=== PATIENT | female | born 1975 | race African-American/Black ===

== ENCOUNTER 2016-11-19 20:26 | Emergency (ER) | payer SELFPAY ==
--- NOTE | 2016-11-19 20:31 | PDOC ---
Rapid Medical Evaluation Chief Complaint: Pain Time Seen by Provider: 11/19/16 20:30 Medical Evaluation: Allergies Allergy/AdvReac Type Severity Reaction Status Date / Time shellfish derived Allergy Mild Swelling Verified 11/23/14 19:17 No Known Drug Allergies Allergy Verified 11/23/14 19:17 nuts Allergy Mild Swelling Uncoded 11/23/14 19:17 11/19/16 20:3 I have performed a brief in-person evaluation of this patient. Ms. Sheriff is a 40 yo F h/o Anemia who states that approximately 1 week ago, she stubbed her left great toe on something at work. Her pain has not improved, worsens with dorsi and plantar flexion, and with bearing weight Has been taking tylenol for pain which has not helped Has also used Icy Hot but this also did not help LMP: 10/27 Pertinent physical exam findings: Left great toe pain with palpation, no swelling, no bruising, no lacerations I have ordered the following: xray left foot o The patient will proceed to Fast track for further evaluation. 11/19/16 20:32 11/19/16 20:35
[2016-11-19 20:33] VITALS: BP 168/90; PULSE 95; TEMP 97.8; BMI 28.3
[2016-11-19] MEDS ORDERED: IBUPROFEN 600 MG TABLET (FP) PO ONE ×2 (20:34→21:30)
--- NOTE | 2016-11-19 22:01 | PDOC ---
[id number] TOE PAIN Time Seen by Provider: 11/19/16 20:30 History Source: Patient Exam Limitations: No Limitations - History of Present Illness Initial Comments: 11/19/16 21:57 40 yr c/o injuring left great toe on 11/14 at work. pt states a rolling rack hit her toe. no deformity c/o continued pain. Lower Extremity Pain Location: right: 1st toe Past History - Past Medical History Allergies/Adverse Reactions: Allergies Allergy/AdvReac Type Severity Reaction Status Date / Time shellfish derived Allergy Mild Swelling Verified 11/19/16 20:31 No Known Drug Allergies Allergy Verified 11/19/16 20:31 nuts Allergy Mild Swelling Uncoded 11/19/16 20:31 Home Medications: Ambulatory Orders NK [No Known Home Medication] 11/19/16 Anemia: Yes Psychiatric Problems: Yes (depression, anxiety) Suicide Attempt (Hx): No - Surgical History Abdominal Surgery: Yes Cholecystectomy: Yes - Immunization History Td Vaccination: Yes Immunization Up to Date: Yes - Psycho/Social/Smoking Cessation Hx Anxiety: Yes Suicidal Ideation: No Smoking Status: No Smoking History: Never smoked Years of Tobacco Use: 0 Number of Cigarettes Smoked Daily: 0 Cigars Per Day: 0 Hx Alcohol Use: No Drug/Substance Use Hx: No Substance Use Type: None Review of Systems - Review of Systems Able to Perform ROS?: Yes Is the patient limited Telugu proficient: No Constitutional: No: Symptoms Reported HEENTM: No: Symptoms Reported Respiratory: No: Symptoms reported Cardiac (ROS): No: Symptoms Reported ABD/GI: No: Symptoms Reported Musculoskeletal: Yes: Symptoms Reported *Physical Exam - Vital Signs Last Vital Signs Temp Pulse Resp BP Pulse Ox 97.8 F 95 H 18 168/90 100 11/19/16 20:31 11/19/16 20:31 11/19/16 20:31 11/19/16 20:31 11/19/16 20:31 - Physical Exam General Appearance: Yes: Nourished, Appropriately Dressed HEENT: positive: EOMI, TORI Extremity: positive: Normal Capillary Refill, Normal Inspection, Normal Range of Motion, Tender (top of left great toe, FROM no bony tenderness, soft tissue tenderness and with flexion, dorsiflexion) Integumentary: positive: Normal Color, Dry, Warm ED Treatment Course - ADDITIONAL ORDERS Additional order review: Laboratory Results 11/19/16 20:36 Urine HCG, Qual Negative - Medications Given in the ED: ED Medications Discontinued Medications Generic Name Dose Route Start Last Admin Trade Name Lupe PRN Reason Stop Dose Admin Ibuprofen 600 mg 11/19/16 20:34 11/19/16 21:32 Motrin - PO 11/19/16 20:35 600 mg ONCE ONE Administration Medical Decision Making - Medical Decision Making 11/19/16 21:59 cc: toe injury nv intact FROM xray done shows no fracture wet read jhonny wrap placed pt to follow with consulting nurse *DC/Admit/Observation/Transfer Diagnosis at time of Disposition: Contusion, toe Qualifiers: Encounter type: initial encounter Toe: great toe Damage to nail status: without damage Laterality: left Qualified Code(s): S90.112A - Contusion of left great toe without damage to nail, initial encounter - Discharge Dispostion Disposition: HOME Condition at time of disposition: Good - Referrals Referrals: Marsha Hines MD [Primary Care Provider] - Nolberto Hooper MD [Staff Physician] - - Patient Instructions Additional Instructions: soak in warm epsom salt water 3-4 times a day take motrin for pain as needed (over the counter advil, ibuprofen or motrin as directed) use the jhonny wrap and wear comfortable shoes follow with the consulting nurse listed below for follow up
== END 2016-11-19 22:37 | disposition home or self-care (01) ==
LOC: JERFT 20:26
DX: S90.112A Contusion of left great toe without damage to nail, initial encounter (principal); W20.8XXA Other cause of strike by thrown, projected or falling object, initial encounter; Y93.9 Activity, unspecified; Y92.9 Unspecified place or not applicable; F41.8 Other specified anxiety disorders; D64.9 Anemia, unspecified
CPT/HCPCS: 73630-TC-LT; 84703; 99281-25

== ENCOUNTER 2018-08-09 12:10 | Emergency (ER) | payer OTHER ==
[2018-08-09 12:28] VITALS: TEMP 98.2; BMI 28.3
--- NOTE | 2018-08-09 12:51 | PDOC ---
History of Present Illness <Ghada Porter - Last Filed: 08/09/18 15:26> - History of Present Illness Initial Comments: 08/09/18 12:52 Ms. Sheriff is a 42 yo female w/ pmh of anemia, depression, and anxiety who presents for evaluation of 2 episodes of shaky hands. Patient reports she is due for her period soon and that she has had similar episodes in the past when her iron was low. Patient reports this first started on thursday (08/06) and resolved after she drank some orange juice. Patient reports she had an additional episode today that likewise resolved and she wants to get checked out. Patient also endorses a several year history of craving ice chips. Patient denies any other complaints at this time. The patient denies chest pain, shortness of breath, headache and dizziness. Denies fever, chills, nausea, vomit, diarrhea and constipation. Denies dysuria, frequency, urgency and hematuria. Allergies: NKDA <Kyle Mccormick - Last Filed: 08/09/18 17:32> - General Chief Complaint: Lightheaded Stated Complaint: LIGHTHEADED Time Seen by Provider: 08/09/18 12:51 Past History <Ghada Porter - Last Filed: 08/09/18 15:26> - Past Medical History Anemia: Yes COPD: No Psychiatric Problems: Yes (depression, anxiety) - Surgical History Abdominal Surgery: Yes Cholecystectomy: Yes - Immunization History Td Vaccination: Yes Immunization Up to Date: Yes - Suicide/Smoking/Psychosocial Hx Smoking Status: No Smoking History: Never smoked Years of Tobacco Use: 0 Number of Cigarettes Smoked Daily: 0 Cigars Per Day: 0 Hx Alcohol Use: No Drug/Substance Use Hx: No Substance Use Type: None <Kyle Mccormick - Last Filed: 08/09/18 17:32> - Past Medical History Allergies/Adverse Reactions: Allergies Allergy/AdvReac Type Severity Reaction Status Date / Time shellfish derived Allergy Mild Swelling Verified 08/09/18 12:24 No Known Drug Allergies Allergy Verified 08/09/18 12:24 nuts Allergy Mild Swelling Uncoded 08/09/18 12:24 Home Medications: Ambulatory Orders EPINEPHrine (EPI-PEN 0.3MG) [Epipen 0.3MG -] 0.3 mg IM ASDIR PRN 08/09/18 Review of Systems - Review of Systems Comments:: 08/09/18 12:54 GENERAL/CONSTITUTIONAL: +Hand shaking and pica as described. No fever or chills. No weakness. HEAD, EYES, EARS, NOSE AND THROAT: No change in vision. No ear pain or discharge. No sore throat. CARDIOVASCULAR: No chest pain or shortness of breath RESPIRATORY: No cough, wheezing, or hemoptysis. GASTROINTESTINAL: No nausea, vomiting, diarrhea or constipation. GENITOURINARY: No dysuria, frequency, or change in urination. MUSCULOSKELETAL: No joint or muscle swelling or pain. No neck or back pain. SKIN: No rash NEUROLOGIC: No headache, vertigo, loss of consciousness, or change in strength/ sensation. ENDOCRINE: No increased thirst. No abnormal weight change HEMATOLOGIC/LYMPHATIC: No anemia, easy bleeding, or history of blood clots. ALLERGIC/IMMUNOLOGIC: No hives or skin allergy. <Kyle Mccormick - Last Filed: 08/09/18 17:32> *Physical Exam - Vital Signs Last Vital Signs Temp Pulse Resp BP Pulse Ox 98.2 F 102 H 20 142/95 98 08/09/18 12:27 08/09/18 12:27 08/09/18 12:27 08/09/18 12:27 08/09/18 12:27 <Ghada Porter - Last Filed: 08/09/18 15:26> - Vital Signs Last Vital Signs Temp Pulse Resp BP Pulse Ox 98.2 F 102 H 20 142/95 98 08/09/18 12:27 08/09/18 12:27 08/09/18 12:27 08/09/18 12:27 08/09/18 12:27 - Physical Exam Comments: 08/09/18 12:54 GENERAL: Awake, alert, and fully oriented, in no acute distress HEAD: No signs of trauma, normocephalic, atraumatic EYES: PERRLA, EOMI, sclera anicteric, conjunctiva clear ENT: Auricles normal inspection, hearing grossly normal, nares patent, oropharynx clear without exudates. Moist mucosa NECK: Normal ROM, supple, no lymphadenopathy, JVD, or masses LUNGS: No distress, speaks full sentences, clear to auscultation bilaterally HEART: Regular rate and rhythm, normal S1 and S2, no murmurs, rubs or gallops, peripheral pulses normal and equal bilaterally. ABDOMEN: Soft, nontender, normoactive bowel sounds. No guarding, no rebound. No masses EXTREMITIES: Normal inspection, Normal range of motion, no edema. No clubbing or cyanosis. NEUROLOGICAL: Cranial nerves II through XII grossly intact. Normal speech, normal gait, no focal sensorimotor deficits SKIN: Warm, Dry, normal turgor, no rashes or lesions noted. <Kyle Mccormick - Last Filed: 08/09/18 17:32> Moderate Sedation - Procedure Monitoring Vital Signs: Procedure Monitoring Vital Signs Temperature 98.2 F 08/09/18 12:27 Pulse Rate 102 H 08/09/18 12:27 Respiratory Rate 20 08/09/18 12:27 Blood Pressure 142/95 08/09/18 12:27 O2 Sat by Pulse Oximetry (%) 98 08/09/18 12:27 <Ghada Porter - Last Filed: 08/09/18 15:26> - Procedure Monitoring Vital Signs: Procedure Monitoring Vital Signs Temperature 98.2 F 08/09/18 12:27 Pulse Rate 102 H 08/09/18 12:27 Respiratory Rate 20 08/09/18 12:27 Blood Pressure 142/95 08/09/18 12:27 O2 Sat by Pulse Oximetry (%) 98 08/09/18 12:27 <Kyle Mccormick - Last Filed: 08/09/18 17:32> ED Treatment Course - LABORATORY CBC & Chemistry Diagram: 08/09/18 14:20 08/09/18 14:20 - ADDITIONAL ORDERS Additional order review: Laboratory Results 08/09/18 08/09/18 14:20 14:20 Sodium 137 Potassium 3.9 Chloride 105 Carbon Dioxide 23 Anion Gap 9 BUN 13 Creatinine 0.8 Creat Clearance w eGFR > 60 Random Glucose 82 Calcium 9.1 Total Bilirubin 0.2 AST 20 ALT 37 Alkaline Phosphatase 68 Total Protein 7.8 Albumin 3.6 TSH 1.18 Serum , Qual Negative 08/09/18 14:20 RBC 4.14 MCV 78.3 L MCHC 33.0 RDW 18.3 H MPV 7.4 L D Neutrophils % 58.7 Lymphocytes % 28.5 D Monocytes % 9.8 Eosinophils % 2.4 D Basophils % 0.6 <Ghada Porter - Last Filed: 08/09/18 15:26> - LABORATORY CBC & Chemistry Diagram: 08/09/18 14:20 08/09/18 14:20 <Kyle Mccormick - Last Filed: 08/09/18 17:32> Medical Decision Making - Medical Decision Making 08/09/18 15:33 Ms. Sheriff is a 42 yo female w/ pmh as described who presents for evaluation of symptoms concerning for anemia. Patient evaluated with labs as below. No concerning findings noted. Will discharge patient with primary care and LIBRARIAN ASSISTANT follow-up for further care. Patient verbalized understanding and agreement and will comply. <Kyle Mccormick - Last Filed: 08/09/18 17:32> *DC/Admit/Observation/Transfer - Discharge Dispostion Decision to Admit order: No <Ghada Porter - Last Filed: 08/09/18 15:26> <Kyle Mccormick - Last Filed: 08/09/18 17:32> Diagnosis at time of Disposition: Lightheaded - Discharge Dispostion Disposition: HOME Condition at time of disposition: Stable - Referrals Referrals: [facility] [Provider Group] Tani Awad MD [Staff Physician] - - Patient Instructions Printed Discharge Instructions: Anemia Additional Instructions: You were evaluated today in the ER for your shaking episodes. No concerning findings were found at this time. Please follow-up using provided information for establishment of primary care provider and LIBRARIAN ASSISTANT. Return to ER if any repeat shaking, fever, chills, pain, or other concerning symptoms. - Post Discharge Activity Forms/Work/School Notes: Back to Work
--- NOTE | 2018-08-09 13:27 | PDOC ---
Attending Attestation - HPI HPI: 08/09/18 13:29 42 yo F with a pmh of anemia who presents with lightheadedness. Patient episodes of lightheadedness with associated tingling in hands, last episode before this morning was on Thursday, which was alleviated after drinking orange juice. She states these episodes occur prior to her menstruation. Denies shortness of breath or prior problems with blood sugar. <Matthias Ochoa - Last Filed: 08/09/18 13:29> - Resident Resident Name: Jose ManuelmareKyle - ED Attending Attestation I have performed the following: I have examined & evaluated the patient, The case was reviewed & discussed with the resident, I agree w/resident's findings & plan, Exceptions are as noted - Physicial Exam PE: GENERAL: Awake, alert, and fully oriented, in no acute distress HEAD: No signs of trauma EYES: PERRLA, EOMI, sclera anicteric, conjunctiva clear ENT: Auricles normal inspection, hearing grossly normal, nares patent, oropharynx clear without exudates. Moist mucosa NECK: Normal ROM, supple, no lymphadenopathy, JVD, or masses LUNGS: Breath sounds equal, clear to auscultation bilaterally. No wheezes, and no crackles HEART: Regular rate and rhythm, normal S1 and S2, no murmurs, rubs or gallops ABDOMEN: Soft, nontender, normoactive bowel sounds. No guarding, no rebound. No masses EXTREMITIES: Normal range of motion, no edema. No clubbing or cyanosis. No cords, erythema, or tenderness NEUROLOGICAL: Cranial nerves II through XII grossly intact. Normal speech, normal gait SKIN: Warm, Dry, normal turgor, no rashes or lesions noted. - Medical Decision Making Pt with lightheadedness, typically happens before her periods. She states she felt better with orange juice. Labs show mild anemia, consistent with priors. CMP wnl. Serum preg negative. Stable for IN home. <Ghada Porter - Last Filed: 08/09/18 18:02> Attestations - Attestations Documentation prepared by Matthias Ochoa, acting as medical research assistant for Ghada Porter MD. <Matthias Ochoa - Last Filed: 08/09/18 13:29>
[2018-08-09 14:31] LABS: BASO % 0.6 % (0-2.0); EOS % 2.4 % (0-4.5); HEMATOCRIT 32.4 % (32.4-45.2); HEMOGLOBIN 10.7 GM/dL (10.7-15.3); LYMPH % 28.5 % (8-40); MCH 25.8 pg (25.7-33.7); MEAN CELL VOLUME 78.3 fl (80-96); MEAN PLT VOLUME 7.4 fl (7.5-11.1); MONO % 9.8 % (3.8-10.2); NEUT % 58.7 % (42.8-82.8); PLATELET COUNT 322 K/MM3 (134-434); RBC 4.14 M/mm3 (3.60-5.2); RDW 18.3 % (11.6-15.6); WHITE BLOOD COUNT 4.3 K/mm3 (4.0-10.0)
[2018-08-09 15:13] LABS: ALBUMIN 3.6 g/dl (3.4-5.0); ALK PHOS 68 U/L (45-117); ANION GAP 9 MMOL/L (8-16); BILIRUBIN,TOTAL 0.2 mg/dL (0.2-1); BLOOD UREA NITROGEN 13 mg/dL (7-18); CALCIUM 9.1 mg/dL (8.5-10.1); CHLORIDE 105 mmol/L (98-107); CO2 23 mmol/L (21-32); CREATININE 0.8 mg/dL (0.55-1.3); GLUCOSE,RANDOM 82 mg/dL (74-106); POTASSIUM 3.9 mmol/L (3.5-5.1); SGOT/AST 20 U/L (15-37); SGPT/ALT 37 U/L (13-61); SODIUM 137 mmol/L (136-145); TOT PROT 7.8 g/dl (6.4-8.2)
[2018-08-09 17:35] VITALS: BP 144/98; PULSE 89
--- NOTE | 2018-08-10 17:03 | EKG ---
Test Reason : Blood Pressure : / mmHG Vent. Rate : 090 BPM Atrial Rate : 090 BPM P-R Int : 156 ms QRS Dur : 084 ms QT Int : 376 ms P-R-T Axes : 031 007 010 degrees QTc Int : 459 ms NORMAL SINUS RHYTHM POSSIBLE LEFT ATRIAL ENLARGEMENT LEFT VENTRICULAR HYPERTROPHY ABNORMAL ECG Confirmed by MD OLIVER, TEDDY ([id number]) on 08/10/2018 5:02:48 PM Referred By: Confirmed By:TEDDY BOYD MD
== END 2018-08-09 17:34 | disposition home or self-care (01) ==
LOC: JER 12:10
DX: R42 Dizziness and giddiness (principal); F41.8 Other specified anxiety disorders
CPT/HCPCS: 36415; 80053; 84443; 84703; 85025; 86850; 86900; 86901; 93005; 93010; 99282-25

== ENCOUNTER 2018-09-06 12:58 | Emergency (ER) | payer OTHER ==
[2018-09-06] MEDS ORDERED: SODIUM CHLORIDE 1,000 ML IV STA (13:24)
[2018-09-06] MEDS ORDERED: LOPERAMIDE HCL 2 MG CAPSULE PO ONE (13:24)
[2018-09-06] MEDS ORDERED: LOPERAMIDE HCL 2 MG CAPSULE ONE (13:31)
--- NOTE | 2018-09-06 13:35 | PDOC ---
Attending Attestation - Resident Resident Name: Nick Altman - ED Attending Attestation I have performed the following: I have examined & evaluated the patient, The case was reviewed & discussed with the resident, I agree w/resident's findings & plan, Exceptions are as noted - Physicial Exam PE: 09/06/18 13:51 GENERAL: The patient is awake, alert, and fully oriented, Nontoxic - in no acute distress. HEAD: Normocephalic, atraumatic. EYES: extraocular movements intact, sclera anicteric, conjunctiva clear. ENT: Normal voice, Moist mucous membranes. NECK: Normal range of motion, supple LUNGS: Breath sounds equal, clear to auscultation bilaterally. No wheezes, no rhonchi, no rales. HEART: Regular rate and rhythm, normal S1 and S2 without murmur, rub or gallop. ABDOMEN: Soft, nontender, normoactive bowel sounds. No guarding, no rebound. . No CVA tenderness EXTREMITIES: Normal range of motion, no edema. No clubbing or cyanosis. No cords, erythema, or tenderness. NEUROLOGICAL: No facial assymetry, Normal speech, PSYCH: Normal mood, normal affect. SKIN: Warm, Dry, normal turgor, - Medical Decision Making 09/06/18 13:28 42y F presenting with 2 days of multiple episodes of nonbloody diarrhea. no sick contacts mild nausea w/o vomiting no associaed abd pain +cramping prior to episodes of diarrhea will ck lytes no abd tenderness to suggest localized peritonitis will ydrate will reassess anticipate dc with pmd fu A portion of this note was documented by scribe services under my direction. I have reviewed the details of the note, within reason, and agree with the documentation with the following case summary and management plan written by me <Manoj Chatman - Last Filed: 09/06/18 13:51> - HPI HPI: 09/06/18 17:20 "The patient is a 42-year-old female with a past medical history significant for Cholecystectomy presents to the emergency department with diarrhea. The patient presents with 2 days of non-bloody, non-melanotic diarrhea, with unknown etiology. The patient suggests it might be traced to andrez pasta she had on Thursday, however, states other individuals who had the food isnt exhibiting similar symptoms. The patient reports she is able to eat, without nausea or vomiting. Denies fever, chills, chest pain, SOB, weakness. denies any current abdominal pain, but notes she had some mild crampingwhen the diarrhea first started. Allergies: NKDA, shellfish. Denies any recent travel, recent abx use. Social history: No tobacco, alcohol or drug use reported Surgical history: Cholecystectomy: PCP: None reported " - Medical Decision Making 09/06/18 17:20 Documentation prepared by Ebony Jaimes, acting as medical affairs specialist for Manoj Chatman MD. <Ebony Jaimes - Last Filed: 09/06/18 17:21>
--- NOTE | 2018-09-06 13:45 | PDOC ---
History of Present Illness - General Chief Complaint: Diarrhea Stated Complaint: Diarrhea Time Seen by Provider: 09/06/18 13:19 History Source: Patient Exam Limitations: No Limitations - History of Present Illness Initial Comments: 09/06/18 13:43 Patient is a 42F with history of cholecystectomyl and anemia here today complaining of 2 days of diarrhea. Denies fevers, chills, nausea, vomiting. Patient states that she thinks this is due to some pasta she ate, but others ate the pasta with no issue. Denies history of lactose intolerance and bowel irritability. Denies recent antibiotic use. Able to tolerate po. Past History - Past Medical History Allergies/Adverse Reactions: Allergies Allergy/AdvReac Type Severity Reaction Status Date / Time shellfish derived Allergy Mild Swelling Verified 09/06/18 13:02 No Known Drug Allergies Allergy Verified 09/06/18 13:02 nuts Allergy Mild Swelling Uncoded 09/06/18 13:02 Home Medications: Ambulatory Orders NK [No Known Home Medication] 09/06/18 Anemia: Yes COPD: No Psychiatric Problems: Yes (depression, anxiety) - Surgical History Abdominal Surgery: Yes Cholecystectomy: Yes - Immunization History Td Vaccination: Yes Immunization Up to Date: Yes - Suicide/Smoking/Psychosocial Hx Smoking Status: No Smoking History: Never smoked Years of Tobacco Use: 0 Number of Cigarettes Smoked Daily: 0 Cigars Per Day: 0 Hx Alcohol Use: No Drug/Substance Use Hx: No Substance Use Type: None Review of Systems - Review of Systems Comments:: 09/06/18 13:45 GENERAL/CONSTITUTIONAL: No fever or chills. No weakness. HEAD, EYES, EARS, NOSE AND THROAT: No change in vision. No sore throat. CARDIOVASCULAR: No chest pain or shortness of breath RESPIRATORY: No cough, wheezing, or hemoptysis. GASTROINTESTINAL: No nausea, vomiting, +diarrhea GENITOURINARY: No dysuria, frequency, or change in urination. MUSCULOSKELETAL: No joint or muscle swelling or pain. No neck or back pain. SKIN: No rash NEUROLOGIC: No headache, vertigo, loss of consciousness, or change in strength/ sensation. ENDOCRINE: No increased thirst. No abnormal weight change HEMATOLOGIC/LYMPHATIC: No anemia, easy bleeding, or history of blood clots. ALLERGIC/IMMUNOLOGIC: No hives or skin allergy. *Physical Exam - Vital Signs Last Vital Signs Temp Pulse Resp BP Pulse Ox 98 F 87 18 143/84 99 09/06/18 12:59 09/06/18 12:59 09/06/18 12:59 09/06/18 12:59 09/06/18 12:59 - Physical Exam Comments: 09/06/18 13:46 GENERAL: Awake, alert, and fully oriented, in no acute distress HEAD: No signs of trauma, normocephalic, atraumatic EYES: PERRLA, EOMI, sclera anicteric, conjunctiva clear ENT: Auricles normal inspection, hearing grossly normal, nares patent, oropharynx clear without exudates. Moist mucosa NECK: Normal ROM, supple, no lymphadenopathy, JVD, or masses LUNGS: No distress, speaks full sentences, clear to auscultation bilaterally HEART: Regular rate and rhythm, normal S1 and S2, no murmurs, rubs or gallops, peripheral pulses normal and equal bilaterally. ABDOMEN: Soft, nontender, normoactive bowel sounds. No guarding, no rebound. No masses EXTREMITIES: Normal inspection, Normal range of motion, no edema. No clubbing or cyanosis. NEUROLOGICAL: Cranial nerves II through XII grossly intact. Normal speech, normal gait, no focal sensorimotor deficits SKIN: Warm, Dry, normal turgor, no rashes or lesions noted. Moderate Sedation - Procedure Monitoring Vital Signs: Procedure Monitoring Vital Signs Temperature 98 F 09/06/18 12:59 Pulse Rate 87 09/06/18 12:59 Respiratory Rate 18 09/06/18 12:59 Blood Pressure 143/84 09/06/18 12:59 O2 Sat by Pulse Oximetry (%) 99 09/06/18 12:59 ED Treatment Course - LABORATORY CBC & Chemistry Diagram: 09/06/18 13:40 09/06/18 13:40 Medical Decision Making - Medical Decision Making 09/06/18 13:46 Patient is 42F here today with diarrhea. Vitals normal and stable. No c diff risk factors. Will treat with loperamide. Will hydrate and evaluate for electrolyte abnormalities. 09/06/18 14:50 No bowel movements in ED. Patient is tolerating PO without difficulty. CBC shows baseline anemia. CMP shows mild elevation of lfts. Patient informed, will follow up with pcp appointment. *DC/Admit/Observation/Transfer Diagnosis at time of Disposition: Diarrhea, Elevated LFTs - Discharge Dispostion Disposition: HOME Condition at time of disposition: Good Decision to Admit order: No - Referrals - Patient Instructions Printed Discharge Instructions: DI for Diarrhea and Traveler's Diarrhea -- Adult Additional Instructions: Your liver enzymes were slightly elevated today. Please follow up with your primary care doctor regarding your diarrhea and liver tests. Please return if you have any new, worsening or concerning symptoms, especially inability to eat/drink, abdominal pain and weakness. - Post Discharge Activity Forms/Work/School Notes: Back to Work
[2018-09-06 13:48] LABS: HEMOGLOBIN 9.8 GM/dL (10.7-15.3); MCH 24.3 pg (25.7-33.7); MCHC 30.7 g/dl (32.0-36.0); MEAN PLT VOLUME 7.7 fl (7.5-11.1); PLATELET COUNT 291 K/MM3 (134-434); RBC 4.05 M/mm3 (3.60-5.2); RDW 17.8 % (11.6-15.6); WHITE BLOOD COUNT 5.3 K/mm3 (4.0-10.0)
[2018-09-06 14:31] LABS: ALBUMIN 3.4 g/dl (3.4-5.0); ALK PHOS 84 U/L (45-117); ANION GAP 7 MMOL/L (8-16); BILIRUBIN,TOTAL 0.3 mg/dL (0.2-1); BLOOD UREA NITROGEN 13 mg/dL (7-18); CALCIUM 8.5 mg/dL (8.5-10.1); CHLORIDE 107 mmol/L (98-107); CO2 25 mmol/L (21-32); CREATININE 0.8 mg/dL (0.55-1.3); GLUCOSE,RANDOM 81 mg/dL (74-106); POTASSIUM 3.6 mmol/L (3.5-5.1); SGOT/AST 49 U/L (15-37); SGPT/ALT 84 U/L (13-61); SODIUM 139 mmol/L (136-145); TOT PROT 7.6 g/dl (6.4-8.2)
[2018-09-06 15:00] VITALS: BP 139/89; PULSE 76; TEMP 98.9
== END 2018-09-06 15:00 | disposition home or self-care (01) ==
LOC: JER 12:58
PROC: 3E0337Z Introduction of Electrolytic and Water Balance Substance into Peripheral Vein, Percutaneous Approach (ICD-10-PCS; principal; 2018-09-06)
DX: R19.7 Diarrhea, unspecified (principal); R94.5 Abnormal results of liver function studies
CPT/HCPCS: 36415; 80053; 85027; 96360; 99282-25; J7030

== ENCOUNTER 2019-05-09 18:23 | Emergency (ER) | payer OTHER ==
--- NOTE | 2019-05-09 18:32 | PDOC ---
Rapid Medical Evaluation Time Seen by Provider: 05/09/19 18:31 Medical Evaluation: Allergies Allergy/AdvReac Type Severity Reaction Status Date / Time shellfish derived Allergy Mild Swelling Verified 09/06/18 13:02 No Known Drug Allergies Allergy Verified 09/06/18 13:02 nuts Allergy Mild Swelling Uncoded 09/06/18 13:02 05/09/19 18:31 HPI: back pain since this afternoon with malodorous urine PE:No gross deficits ORDERS: UA and Cx Discharge Disposition - Diagnosis Back pain - Referrals - Patient Instructions - Post Discharge Activity
[2019-05-09 18:34] VITALS: BP 157/87; PULSE 90; TEMP 98.6; BMI 26.6
[2019-05-09] MEDS ORDERED: KETOROLAC TROMETHAMINE 15 MG/ML VIAL IM ONE (19:02)
[2019-05-09] MEDS ORDERED: METHOCARBAMOL 500 MG TABLET PO ONE (19:02)
[2019-05-09] MEDS ORDERED: KETOROLAC TROMETHAMINE 15 MG/ML VIAL ONE (19:13)
[2019-05-09] MEDS ORDERED: METHOCARBAMOL 500 MG TABLET ONE (19:13)
--- NOTE | 2019-05-09 19:36 | PDOC ---
History of Present Illness - General Chief Complaint: Back Pain Stated Complaint: BACK PAIN Time Seen by Provider: 05/09/19 18:31 History Source: Patient Exam Limitations: No Limitations - History of Present Illness Initial Comments: 05/09/19 19:29 43 yo F w/ a h/o fibroids comes in c/o sudden onset of mid back pain today. She says that she felt energized today, she cleaned the house and painted her living room. As soon as she was done she started feeling the back pain. It is worse with movement and ambulation, does not radiate anywhere, no LE pain/ numbness/tingling/weakness, no lower back pain, no chest pain, no SOB, no h/o malignancy, no weight loss, no IVDA. No abdominal pain (she has been having pain at her C section site for the past 8 years and her OB knows about it, but no new pain). No burning/pain on urination, no frequency/urgency on urination but pt does c/o malodorous urine yesterday, she thinks she did not drink enough water. No change in appetite, no fever/chills, no NVD, no other complaints today. 05/09/19 19:37 Past History - Past Medical History Allergies/Adverse Reactions: Allergies Allergy/AdvReac Type Severity Reaction Status Date / Time shellfish derived Allergy Mild Swelling Verified 05/09/19 18:31 No Known Drug Allergies Allergy Verified 05/09/19 18:31 nuts Allergy Mild Swelling Uncoded 05/09/19 18:31 Home Medications: Ambulatory Orders NK [No Known Home Medication] 18 Anemia: Yes COPD: No Psychiatric Problems: Yes (depression, anxiety) - Surgical History Abdominal Surgery: Yes Cholecystectomy: Yes - Reproductive History Is Patient Now?: No - Immunization History Td Vaccination: Yes Immunization Up to Date: Yes - Suicide/Smoking/Psychosocial Hx Smoking Status: No Smoking History: Never smoked Years of Tobacco Use: 0 Number of Cigarettes Smoked Daily: 0 Cigars Per Day: 0 Hx Alcohol Use: No Drug/Substance Use Hx: No Substance Use Type: None Review of Systems - Review of Systems Able to Perform ROS?: Yes Constitutional: No: Chills, Fever, Malaise, Night Sweats HEENTM: No: Eye Pain, Recent change in vision, Throat Pain Respiratory: No: Cough, Shortness of Breath Cardiac (ROS): No: Chest Pain, Palpitations, Chest Tightness ABD/GI: No: Diarrhea, Nausea, Vomiting, Abdominal cramping : No: Dysuria, Hematuria Musculoskeletal: Yes: Back Pain Integumentary: No: Rash Neurological: No: Headache, Numbness, Dizziness Psychiatric: No: Change in Appetite Endocrine: No: Unexplained Weight Loss *Physical Exam - Vital Signs Last Vital Signs Temp Pulse Resp BP Pulse Ox 98.6 F 90 18 157/87 98 05/09/19 18:31 05/09/19 18:31 05/09/19 18:31 05/09/19 18:31 05/09/19 18:31 - Physical Exam General Appearance: Yes: Nourished. No: Apparent Distress HEENT: positive: TORI, Normal ENT Inspection, Normal Voice. negative: Pale Conjunctivae, Scleral Icterus (R), Scleral Icterus (L) Neck: positive: Supple. negative: Decreased range of motion, Tender midline Respiratory/Chest: positive: Lungs Clear, Normal Breath Sounds. negative: Respiratory Distress, Accessory Muscle Use Cardiovascular: positive: Regular Rhythm, Regular Rate Gastrointestinal/Abdominal: positive: Normal Bowel Sounds, Soft, Other (area of thickened skin at C section site, slightly tender but no erythema, no warmth, no fluctuance, no induration, no swelling, no signs of infection). negative: Tender Musculoskeletal: positive: Normal Inspection, Muscle Spasm (L mid parathoracic muscle spasm w/ tenderness, but no CVA tenderness). negative: CVA Tenderness, CVA Tenderness (R), CVA Tenderness (L), Decreased Range of Motion Extremity: positive: Normal Capillary Refill, Normal Inspection, Normal Range of Motion. negative: Tender, Pedal Edema Integumentary: positive: Normal Color, Dry. negative: Jaundice, Rash Neurologic: positive: Fully Oriented, Alert, Normal Mood/Affect ED Treatment Course - Medications Given in the ED: ED Medications Discontinued Medications Generic Name Dose Route Start Last Admin Trade Name Freq PRN Reason Stop Dose Admin Ketorolac Tromethamine 15 mg 05/09/19 19:02 05/09/19 19:21 Toradol Injection - IM 05/09/19 19:03 15 mg ONCE ONE Administration Methocarbamol 1,000 mg 05/09/19 19:02 05/09/19 19:21 Robaxin - PO 05/09/19 19:03 1,000 mg ONCE ONE Administration Medical Decision Making - Medical Decision Making 05/09/19 19:42 43 yo F w/ back muscle spasm after cleaning her house and painting her living room. ALso w/ malodorous urine, no CVA tenderness. WIll give toradol, robaxin, will check UA, UCG, Ucx and reassess 05/09/19 19:51 CHange of shift, care of patient signed over to ALANA Rosenberg who will reassess pt , follow up UA result and likely discharge with PMD follow up. *DC/Admit/Observation/Transfer Diagnosis at time of Disposition: Muscle spasm of back - Referrals - Patient Instructions - Post Discharge Activity
[2019-05-09 19:50] LABS: EPI CELLS 10.2 /HPF (0-5/HPF); HYALINE CASTS 23 /lpf (0-8); URINE APPEARANCE CLOUDY; URINE BILIRUBIN NEGATIVE (NEGATIVE); URINE COLOR YELLOW; URINE GLUCOSE (UA) NEGATIVE (NEGATIVE); URINE KETONE TRACE (NEGATIVE); URINE LEUK ESTERASE 1+ (NEGATIVE); URINE NITRITE NEGATIVE (NEGATIVE); URINE PROTEIN TRACE (NEGATIVE); URINE RBC 2 /hpf (0-4); URINE WBC 37 /hpf (0-5)
[2019-05-09] MEDS ORDERED: CEPHALEXIN MONOHYDRATE 500 MG CAPSULE (UD) PO ONE (19:55)
[2019-05-09] MEDS ORDERED: CEPHALEXIN MONOHYDRATE 500 MG CAPSULE (UD) ONE (20:03)
--- NOTE | 2019-05-09 20:30 | PDOC ---
*Physical Exam - Vital Signs Last Vital Signs Temp Pulse Resp BP Pulse Ox 98.6 F 90 18 157/87 98 05/09/19 18:31 05/09/19 18:31 05/09/19 18:31 05/09/19 18:31 05/09/19 18:31 - Physical Exam Comments: 05/09/19 20:19 Signed out to me with back pain, but also complaining of an odor, patient is not , patient has evidence of UTI on UA ED Treatment Course - ADDITIONAL ORDERS Additional order review: Laboratory Results 05/09/19 05/09/19 19:27 19:27 Urine Color Yellow Urine Appearance Cloudy Urine pH 7.0 D Ur Specific [place] 1.029 Urine Protein Trace Urine Glucose (UA) Negative Urine Ketones Trace H Urine Blood 2+ H Urine Nitrite Negative Urine Bilirubin Negative Urine Urobilinogen 1.0 Ur Leukocyte Esterase 1+ H Urine WBC (Auto) 37 Urine RBC (Auto) 2 Urine Casts (Auto) 23 U Epithel Cells (Auto) 10.2 Urine Bacteria (Auto) 706.0 Urine HCG, Qual Negative - Medications Given in the ED: ED Medications Discontinued Medications Generic Name Dose Route Start Last Admin Trade Name Freq PRN Reason Stop Dose Admin Cephalexin HCl 500 mg 05/09/19 19:55 05/09/19 20:05 Keflex - PO 05/09/19 19:56 500 mg ONCE ONE Administration Ketorolac Tromethamine 15 mg 05/09/19 19:02 05/09/19 19:21 Toradol Injection - IM 05/09/19 19:03 15 mg ONCE ONE Administration Methocarbamol 1,000 mg 05/09/19 19:02 05/09/19 19:21 Robaxin - PO 05/09/19 19:03 1,000 mg ONCE ONE Administration Medical Decision Making - Medical Decision Making 05/09/19 20:39 pt examined, agree with prior assessment of musculoskeletal back pain, and UTI, not related, no signs of fever, illness, pyelonephritis. Patient will be sent home on Keflex as previously Discussed issues, findings, results, applicable medications and treatments and follow-up. All these were understood and all questions were answered *DC/Admit/Observation/Transfer Diagnosis at time of Disposition: Muscle spasm of back, Urinary tract infection - Discharge Dispostion Disposition: HOME Condition at time of disposition: Stable Decision to Admit order: No - Prescriptions Prescriptions: Cephalexin [Keflex] 500 mg PO QID 7 Days #28 capsule Meloxicam [Mobic] 15 mg PO DAILY #14 tablet Methocarbamol [Robaxin -] 500 mg PO TID #21 tablet - Referrals - Patient Instructions Printed Discharge Instructions: Urinary Tract Infection Additional Instructions: Drink 2-3 L of water daily Take the Keflex as directed for 7 days take Acidophilus to help prevent yeast infection or stomach upset Return ER if fever, vomiting, feeling sicker Follow-up with your doctor in 2-3 days No heavy lifting or bending Apply ice to the area 20 minutes every 2 hours for the next 2 days Take mobic and the Robaxin as directed Return to the nearest ER if numbness, weakness, severe pain, problems with urinating or having bowel movements. Call orthopedist today for an appointment for further evaluation - Post Discharge Activity
== END 2019-05-09 20:49 | disposition home or self-care (01) ==
LOC: JERFT 18:23
PROC: 3E0233Z Introduction of Anti-inflammatory into Muscle, Percutaneous Approach (ICD-10-PCS; principal; 2019-05-09)
DX: M62.830 Muscle spasm of back (principal); X50.9XXA Other and unspecified overexertion or strenuous movements or postures, initial encounter; Y93.E9 Activity, other interior property and clothing maintenance; Y92.038 Other place in apartment as the place of occurrence of the external cause; Y99.8 Other external cause status
CPT/HCPCS: 81003; 84703; 87086; 96372; 99283-25

== ENCOUNTER 2019-07-19 22:38 | Emergency (ER) | payer OTHER ==
[2019-07-19 22:49] VITALS: BP 168/90; PULSE 90; TEMP 97.5; BMI 31.3
[2019-07-19] MEDS ORDERED: diphenhydrAMINE HCL 25 MG CAPSULE (FP) PO ONE (23:57)
[2019-07-19] MEDS ORDERED: predniSONE 20 MG TABLET (UD) ONE (23:59)
[2019-07-20] MEDS ORDERED: diphenhydrAMINE HCL 25 MG CAPSULE (FP) PO ONE
[2019-07-20] MEDS ORDERED: ONDANSETRON *ODT* 4 MG TABLET ONE
[2019-07-20] MEDS ORDERED: predniSONE 20 MG TABLET (UD) PO ONE (00:04)
[2019-07-20] MEDS ORDERED: ONDANSETRON *ODT* 4 MG TABLET SL ONE (00:07)
--- NOTE | 2019-07-20 00:33 | PDOC ---
Documentation entered by Otilio Palma SCRIBE, acting as scribe for Nancy Romero MD. Nancy Romero MD: This documentation has been prepared by the Louie lazaro Daniel, SCRIBE, under my direction and personally reviewed by me in its entirety. I confirm that the documentation accurately reflects all work, treatment, procedures, and medical decision making performed by me. History of Present Illness - General Chief Complaint: Allergic Reaction Stated Complaint: ALLERGIES Time Seen by Provider: 07/19/19 23:57 History Source: Patient Exam Limitations: No Limitations - History of Present Illness Initial Comments: 07/20/19 00:02 The patient is a 43 year old female with a past medical history of fibroids here today for evaluation of vomiting and throat pain. The patient reports that despite her shellfish allergy she eats fish everyday. She reports that one hour after eating some fish tonight she vomited and developed throat pain and 2 itchy bumps on her right cheek. Patient denies headache, lightheadedness. Denies fever, chills. Denies chest pain, shortness of breath. Denies nausea, vomiting, diarrhea, abdominal pain. Allergies: shellfish derived, NKDA, nuts Past History - Past Medical History Allergies/Adverse Reactions: Allergies Allergy/AdvReac Type Severity Reaction Status Date / Time shellfish derived Allergy Mild Swelling Verified 07/19/19 22:47 No Known Drug Allergies Allergy Verified 07/19/19 22:47 nuts Allergy Mild Swelling Uncoded 07/19/19 22:47 Home Medications: Ambulatory Orders Cephalexin [Keflex] 500 mg PO QID 7 Days #28 capsule 05/09/19 Meloxicam [Mobic] 15 mg PO DAILY #14 tablet 05/09/19 Methocarbamol [Robaxin -] 500 mg PO TID #21 tablet 05/09/19 Diphenhydramine HCl [Benadryl -] 25 mg PO Q6H PRN #20 capsule MDD 4 tabs Epinephrine [Epipen 2-Hay] 0.3 mg IJ ASDIR #1 kit 07/20/19 Anemia: Yes COPD: No Psychiatric Problems: Yes (depression, anxiety) - Surgical History Abdominal Surgery: Yes Cholecystectomy: Yes - Immunization History Td Vaccination: Yes Immunization Up to Date: Yes - Psycho Social/Smoking Cessation Hx Smoking Status: No Smoking History: Never smoked Years of Tobacco Use: 0 Number of Cigarettes Smoked Daily: 0 Cigars Per Day: 0 Hx Alcohol Use: No Drug/Substance Use Hx: No Substance Use Type: None Review of Systems - Review of Systems Able to Perform ROS?: Yes Comments:: 07/20/19 00:02 CONSTITUTIONAL: Absent: fever, chills, diaphoresis, generalized weakness, malaise, loss of appetite HEENT: +throat pain. Absent: rhinorrhea, nasal congestion, throat swelling, difficulty swallowing, mouth swelling, ear pain, eye pain, visual Changes CARDIOVASCULAR: Absent: chest pain, syncope, palpitations, irregular heart rate, lightheadedness , peripheral edema RESPIRATORY: Absent: cough, shortness of breath, dyspnea with exertion, orthopnea, wheezing, stridor, hemoptysis GASTROINTESTINAL: +vomiting Absent: abdominal pain, abdominal distension, nausea, diarrhea, constipation, melena, hematochezia GENITOURINARY: Absent: dysuria, frequency, urgency, hesitancy, hematuria, flank pain, genital pain MUSCULOSKELETAL: Absent: myalgia, arthralgia, joint swelling SKIN: +itchy bumps on right cheek. Absent: pallor HEMATOLOGIC/IMMUNOLOGIC: Absent: easy bleeding, easy bruising, lymphadenopathy, frequent infections ENDOCRINE: Absent: unexplained weight gain, unexplained weight loss, heat intolerance, cold intolerance NEUROLOGIC: Absent: headache, focal weakness or paresthesias, dizziness, unsteady gait, seizure, mental status changes, bladder or bowel incontinence PSYCHIATRIC: Absent: anxiety, depression, suicidal or homicidal ideation, hallucinations. *Physical Exam - Vital Signs Last Vital Signs Temp Pulse Resp BP Pulse Ox 97.5 F L 90 18 168/90 98 07/19/19 22:48 07/19/19 22:48 07/19/19 22:48 07/19/19 22:48 07/19/19 22:48 - Physical Exam Comments: 07/20/19 00:03 GENERAL: Well developed, well nourished. Awake and alert. No acute distress. HEENT: Normocephalic, atraumatic. PERRLA, EOMI. No conjunctival pallor. Sclera are non- icteric. Moist mucous membranes. Oropharynx is clear. NECK: Supple. Full ROM. No JVD. Carotid pulses 2+ and symmetric, without bruits. No thyromegaly. No lymphadenopathy. CARDIOVASCULAR: Regular rate and rhythm. No murmurs, rubs, or gallops. Distal pulses are 2+ and symmetric. PULMONARY: No evidence of respiratory distress. Lungs clear to auscultation bilaterally. No wheezing, rales or rhonchi. ABDOMINAL: Soft. Non-tender. Non-distended. No rebound or guarding. No organomegaly. Normoactive bowel sounds. MUSCULOSKELETAL Normal range of motion at all joints. No bony deformities or tenderness. No CVA tenderness. EXTREMITIES: No cyanosis. No clubbing. No edema. No calf tenderness. SKIN: Warm and dry. Normal capillary refill. No rashes. No jaundice. No hives. No angioedema. NEUROLOGICAL: Alert, awake, appropriate. Cranial nerves 2-12 intact. No deficits to light touch and temperature in face, upper extremities and lower extremities. No motor deficits in the in face, upper extremities and lower extremities. Normoreflexic in the upper and lower extremities. Normal speech. Toes are down- going bilaterally. Gait is normal without ataxia. PSYCHIATRIC: Cooperative. Good eye contact. Appropriate mood and affect. ED Treatment Course - Medications Given in the ED: ED Medications Discontinued Medications Generic Name Dose Route Start Last Admin Trade Name Freq PRN Reason Stop Dose Admin Diphenhydramine HCl 25 mg 07/19/19 23:57 07/20/19 00:03 Benadryl - PO 07/19/19 23:58 25 mg ONCE ONE Administration Ondansetron HCl 4 mg 07/20/19 00:07 07/20/19 00:07 Zofran Odt - SL 07/20/19 00:08 4 mg ONCE ONE Administration Prednisone 40 mg 07/20/19 00:04 07/20/19 00:06 Deltasone - PO 07/20/19 00:05 40 mg ONCE ONE Administration Medical Decision Making - Medical Decision Making 07/20/19 00:33 43-year-old female with a history of seafood allergy developed itching and some throat discomfort after eating fish this evening Lungs are clear to auscultation there was no wheezing Very few hives there was of a few hives on her face She was able to swallow medications and water with no problem In reviewing her medications it was noted that her EpiPen's were 3 years out of date and another prescription was sent to her pharmacy Discharge - Discharge Information Problems reviewed: Yes Clinical Impression/Diagnosis: Allergy Qualifiers: Encounter type: initial encounter Qualified Code(s): T78.40XA - Allergy, unspecified, initial encounter Condition: Stable Disposition: HOME - Additional Discharge Information Prescriptions: Diphenhydramine HCl [Benadryl -] 25 mg PO Q6H PRN #20 capsule MDD 4 tabs PRN Reason: Allergies Epinephrine [Epipen 2-Hay] 0.3 mg IJ ASDIR #1 kit - Follow up/Referral - Patient Discharge Instructions Patient Printed Discharge Instructions: DI for Food Allergy Additional Instructions: please take your Benadryl as needed for itching please brain picker your medications at your pharmacy If you have persistent symptoms, return to the emergency department - Post Discharge Activity
== END 2019-07-20 00:40 | disposition home or self-care (01) ==
LOC: JER 22:38
DX: T78.1XXA Other adverse food reactions, not elsewhere classified, initial encounter (principal); Z91.013 Allergy to seafood; Z91.018 Allergy to other foods
CPT/HCPCS: 99283-25; Q0162